=== PATIENT | male | born 1985 ===

== ENCOUNTER 2017-05-13 17:33 | Emergency (ER) | payer BC ==
[~2017-05-13] VITALS: Ht 200.7 cm; Wt 99.8 kg
--- NOTE | 2017-05-13 17:55 | ER Report ---
History and Physical Time Seen By MD: 17:55 Hx. of Stated Complaint: PT REPORTS RLQ PAIN FOR 2 MOS, WORSE THE PAST 2 DAYS HPI/ROS CHIEF COMPLAINT: Abdominal pain HISTORY OF PRESENT ILLNESS: This is a 31-year-old male who presents to the emergency department for right lower quadrant pain. Patient states that over the last couple weeks he's had intermittent right lower quadrant pain and over the last 2 days the pain has been persistent. Patient also states he's had an appendectomy, he has also had some "pus" and foul smelling stuff come out of his ubilicus, he did follow up with his PCP. Patient states he is also concerned about gallbladder disease as his mother, grandmother and his son both had gallbladders removed. However patient's pain is right lower quadrant. Patient denies dysuria, nausea, vomiting, diarrhea. REVIEW OF SYSTEMS: Constitutional: No fever, no chills. Eyes: No discharge. ENT: No sore throat. Cardiovascular: No chest pain, no palpitations. Respiratory: No cough, no shortness of breath. Gastrointestinal: As above. Genitourinary: No hematuria. Musculoskeletal: No back pain. Skin: No rashes. Neurological: No headache. Allergies: Coded Allergies: Penicillins (Verified Allergy, Unknown, 05/13/17) amoxicillin (Verified Allergy, Unknown, 05/13/17) Home Meds No Active Prescriptions or Reported Meds Past Medical/Surgical History Chin has a past medical and surgical history of right foot fracture 2. Right hand fracture. Reviewed Nurses Notes: Yes Constitutional Vital Sign - Last 24 Hours 05/13/17 05/13/17 17:35 19:33 Temp 97.9 Pulse 89 85 Resp 16 16 B/P (MAP) 163/99 128/82 (97) Pulse Ox 96 95 O2 Delivery Room Air Room Air Physical Exam General Appearance: The patient is alert, has no immediate need for airway protection and no signs of toxicity. Eyes: Pupils equal and round no pallor or injection. ENT, Mouth: Mucous membranes are moist. Respiratory: There are no retractions, lungs are clear to auscultation. Cardiovascular: Regular rate and rhythm, no murmurs, clicks or rubs. Gastrointestinal: Abdomen is soft and tenderness to the right lower quadrant, no rebound tenderness, no masses, bowel sounds normal. Neurological: Alert and oriented 4. Moving all extremities. Following all commands. No focal neuro deficits. Skin: Warm and dry, no rashes. Musculoskeletal: Neck is supple non tender. Extremities are nontender, nonswollen and have full range of motion. DIFFERENTIAL DIAGNOSIS: After history and physical exam differential diagnosis was considered for abdominal pain including but not limited to appendicitis, cholecystitis, gastritis and urinary tract infection. Medical Decision Making Data Points Result Diagram: 05/13/17 1740 05/13/17 1740 Laboratory Hematology Test 05/13/17 17:40 Red Blood Count 5.76 M/uL (4.00-5.60) Mean Corpuscular Volume 88.0 fL (80.0-96.0) Mean Corpuscular Hemoglobin 30.3 pg (26.0-33.0) Mean Corpuscular Hemoglobin Concent 34.4 g/dL (32.0-36.0) Red Cell Distribution Width 13.3 % (11.5-14.5) Mean Platelet Volume 8.5 fL (7.2-11.1) Neutrophils (%) (Auto) 57.9 % (39.4-72.5) Lymphocytes (%) (Auto) 32.3 % (17.6-49.6) Monocytes (%) (Auto) 6.3 % (4.1-12.4) Eosinophils (%) (Auto) 2.7 % (0.4-6.7) Basophils (%) (Auto) 0.8 % (0.3-1.4) Nucleated RBC Relative Count (auto) 0.1 /100WBC Neutrophils # (Auto) 4.4 K/uL (2.0-7.4) Lymphocytes # (Auto) 2.4 K/uL (1.3-3.6) Monocytes # (Auto) 0.5 K/uL (0.3-1.0) Eosinophils # (Auto) 0.2 K/uL (0.0-0.5) Basophils # (Auto) 0.1 K/uL (0.0-0.1) Nucleated RBC Absolute Count (auto) 0.01 K/uL Urine Color Straw Urine Clarity Clear Urine pH 6.0 pH (4.8-9.5) Urine Specific Success 1.006 Urine Protein Negative mg/dL (NEGATIVE) Urine Glucose (UA) Negative mg/dL (NEGATIVE) Urine Ketones Negative mg/dL (NEGATIVE) Urine Blood Negative (NEGATIVE) Urine Nitrite Negative (NEGATIVE) Urine Bilirubin Negative (NEGATIVE) Urine Urobilinogen Negative mg/dL (0.2-1.9) Urine Leukocyte Esterase Negative (NEGATIVE) Urine RBC None /HPF (0-2/HPF) Urine WBC <1 /HPF (0-5/HPF) Urine Squamous Epithelial Cells None /LPF (</=FEW) Urine Bacteria Negative /HPF (NONE-FEW) Urine Mucus None /HPF (NONE-FEW) Sodium Level 140 mmol/L (137-145) Potassium Level 3.4 mmol/L (3.5-5.0) Chloride Level 103 mmol/L (98-107) Carbon Dioxide Level 24 mmol/L (22-30) Blood Urea Nitrogen 14 mg/dl (9-21) Creatinine 1.10 mg/dl (0.66-1.25) Glomerular Filtration Rate Calc > 60.0 Random Glucose 89 mg/dl (75-110) Calcium Level 9.7 mg/dl (8.4-10.2) Total Bilirubin 0.6 mg/dl (0.2-1.3) Aspartate Amino Transf (AST/SGOT) 33 U/L (0-35) Alanine Aminotransferase (ALT/SGPT) 36 U/L (0-56) Alkaline Phosphatase 82 U/L (0-126) Total Protein 8.1 gm/dl (6.3-8.2) Albumin 4.5 g/dl (3.5-5.0) Chemistry Test 05/13/17 17:40 White Blood Count 7.5 k/uL (4.5-11.0) Red Blood Count 5.76 M/uL (4.00-5.60) Hemoglobin 17.4 g/dL (14.0-18.0) Hematocrit 50.7 % (42.0-52.0) Mean Corpuscular Volume 88.0 fL (80.0-96.0) Mean Corpuscular Hemoglobin 30.3 pg (26.0-33.0) Mean Corpuscular Hemoglobin Concent 34.4 g/dL (32.0-36.0) Red Cell Distribution Width 13.3 % (11.5-14.5) Platelet Count 229 K/uL (150-450) Mean Platelet Volume 8.5 fL (7.2-11.1) Neutrophils (%) (Auto) 57.9 % (39.4-72.5) Lymphocytes (%) (Auto) 32.3 % (17.6-49.6) Monocytes (%) (Auto) 6.3 % (4.1-12.4) Eosinophils (%) (Auto) 2.7 % (0.4-6.7) Basophils (%) (Auto) 0.8 % (0.3-1.4) Nucleated RBC Relative Count (auto) 0.1 /100WBC Neutrophils # (Auto) 4.4 K/uL (2.0-7.4) Lymphocytes # (Auto) 2.4 K/uL (1.3-3.6) Monocytes # (Auto) 0.5 K/uL (0.3-1.0) Eosinophils # (Auto) 0.2 K/uL (0.0-0.5) Basophils # (Auto) 0.1 K/uL (0.0-0.1) Nucleated RBC Absolute Count (auto) 0.01 K/uL Urine Color Straw Urine Clarity Clear Urine pH 6.0 pH (4.8-9.5) Urine Specific Success 1.006 Urine Protein Negative mg/dL (NEGATIVE) Urine Glucose (UA) Negative mg/dL (NEGATIVE) Urine Ketones Negative mg/dL (NEGATIVE) Urine Blood Negative (NEGATIVE) Urine Nitrite Negative (NEGATIVE) Urine Bilirubin Negative (NEGATIVE) Urine Urobilinogen Negative mg/dL (0.2-1.9) Urine Leukocyte Esterase Negative (NEGATIVE) Urine RBC None /HPF (0-2/HPF) Urine WBC <1 /HPF (0-5/HPF) Urine Squamous Epithelial Cells None /LPF (</=FEW) Urine Bacteria Negative /HPF (NONE-FEW) Urine Mucus None /HPF (NONE-FEW) Glomerular Filtration Rate Calc > 60.0 Calcium Level 9.7 mg/dl (8.4-10.2) Total Bilirubin 0.6 mg/dl (0.2-1.3) Aspartate Amino Transf (AST/SGOT) 33 U/L (0-35) Alanine Aminotransferase (ALT/SGPT) 36 U/L (0-56) Alkaline Phosphatase 82 U/L (0-126) Total Protein 8.1 gm/dl (6.3-8.2) Albumin 4.5 g/dl (3.5-5.0) Urinalysis Test 05/13/17 17:40 Urine Color Straw Urine Clarity Clear Urine pH 6.0 pH (4.8-9.5) Urine Specific Success 1.006 Urine Protein Negative mg/dL (NEGATIVE) Urine Glucose (UA) Negative mg/dL (NEGATIVE) Urine Ketones Negative mg/dL (NEGATIVE) Urine Blood Negative (NEGATIVE) Urine Nitrite Negative (NEGATIVE) Urine Bilirubin Negative (NEGATIVE) Urine Urobilinogen Negative mg/dL (0.2-1.9) Urine Leukocyte Esterase Negative (NEGATIVE) Urine RBC None /HPF (0-2/HPF) Urine WBC <1 /HPF (0-5/HPF) Urine Squamous Epithelial Cells None /LPF (</=FEW) Urine Bacteria Negative /HPF (NONE-FEW) Urine Mucus None /HPF (NONE-FEW) EKG/Imaging Imaging Location: [facility] - [place] Patient: Evan Nichols : 1985 Visit/Account:[id number] Date of Sevice: 05/13/2017 CT abdomen and pelvis with IV contrast Indication: Right lower abdominal pain. Comparison: None available. . Technique: Axial CT images were obtained through the abdomen and pelvis during injection of nonionic iodinated intravenous contrast. Reformatted coronal and sagittal images were also obtained. One of the following dose optimization techniques was utilized in the performance of this exam: Automated exposure control; adjustment of the mA and/ or kV according to the patient's size; or use of an iterative reconstruction technique. Specific details can be referenced in the facility's radiology CT exam operational policy. Contrast: 100 ml of Isovue-370 IV contrast. Findings: Lower lung landis: Posterior left lower lobe does show a partially calcified pleural-based granuloma. There is also a partially calcified granuloma seen in the right middle lobe. Lung bases otherwise clear. Liver: No focal parenchymal abnormality of the liver. Biliary: Gallbladder appears unremarkable as well as the intra and extra hepatic biliary system. Pancreas: Normal appearance. Spleen: Normal appearance. Adrenal glands: Unremarkable. Kidneys / retroperitoneum: No evidence of nephrolithiasis or hydronephrosis. No focal normality. Bowel / peritoneum / mesenteries: The visualized gastrointestinal tract is within normal limits. Status post appendectomy. Stomach is unremarkable. No free air, free fluid, fluid collections or areas of inflammation. Small umbilical hernia containing fat. Lymph node assessment: No pathologic adenopathy identified. Pelvic structures: Appear unremarkable. Vessels: No significant atherosclerotic calcifications seen throughout a nonaneurysmal abdominal aorta and branches. Incidental note of a circumflex left renal vein. Musculoskeletal / Body wall: No acute or aggressive osseous abnormality. Mild degenerative changes in lower lumbar spine. IMPRESSION: 1. No acute intra-abdominal abnormality Report Dictated By: Lambert Abdi at 05/13/2017 6:49 PM Report E-Signed By: Lambert Abdi at 05/13/2017 6:54 PM WSN:[id number] ED Course/Re-evaluation Clinical Indication for ER IV: IV Access ED Course The patient was admitted to room. A history and physical were obtained. Differential diagnoses were considered. IV was started. A CBC, CMP and UA were obtained. Lab studies unremarkable. Negative UA. A CT of the abdomen and pelvis was negative for any acute abnormalities. I did review these results with the patient. After further evaluation of the patient he did tell me that he has right hip pain and has been seeing a chiropractor over the last several months for his hip, he does have a "bad hip on the right side", patient also states he does have some chronic lower back pain. I did tell the patient that this is likely the cause of his right lower abdominal pain, it could be more muscular. I did write a prescription for physical therapy for the patient and he is willing to try this and follow-up with his primary care provider. I did also tell the patient that given his normal labs and the lack of right upper quadrant pain or epigastric pain that I didn't feel it was necessary to proceed with a gallbladder ultrasound. The patient was in agreement with this plan of care, had no other questions or concerns at this time and was discharged home. Decision to Disposition Date: May 13, 2017 Decision to Disposition Time: 19:25 Depart Departure Latest Vital Signs Vital Signs Date Time Temp Pulse Resp B/P (MAP) Pulse Ox O2 Delivery O2 Flow Rate FiO2 05/13/17 19:33 85 16 128/82 (97) 95 Room Air 05/13/17 17:35 97.9 Impression: Primary Impression: Right lower quadrant abdominal pain Condition: Improved Disposition: HOME OR SELF-CARE New Scripts No Active Prescriptions or Reported Meds Patient Instructions: Abdominal Pain (ED) Additional Instructions: Drink plenty of fluids. Get plenty of rest. Take ibuprofen or Tylenol as needed for pain. I do not think the pain is related to your gallbladder, I think this is more muscular from your hip pain and back pain. Follow up with physical therapy for evaluation and treatment. Follow up with your primary care provider as needed. May return to the Ed for worsening symptoms. EVAN [employer] May 13, 2017 17:55
[2017-05-13] MEDS ORDERED: IOPAMIDOL 76% 100 ML INFUS BTL 100 ML ONE (18:18)
[2017-05-13] MEDS ORDERED: NS 0.9% 150 ML BAG 150 ML ONE (18:18)
[2017-05-13 18:20] LABS: PLATELET COUNT, AUTOMATED 229 K/uL (150-450)
--- NOTE | 2017-05-13 18:59 | RADIOLOGY IMAGING REPORT ---
FACILITY: [facility] - [place] PATIENT NAME: Tonja Nichols : 1985 MR: [id number] V: [id number] EXAM DATE: ORDERING PHYSICIAN: TONJA LEAL TECHNOLOGIST: Location: [facility] [place] Patient: Tonja Nichols : 1985 Visit/Account:[id number] Date of Sevice: 05/13/2017 CT abdomen and pelvis with IV contrast Indication: Right lower abdominal pain. Comparison: None available. . Technique: Axial CT images were obtained through the abdomen and pelvis during injection of nonioni c iodinated intravenous contrast. Reformatted coronal and sagittal images were also obtained. One of the following dose optimization techniques was utilized in the performance of this exam: Autom ated exposure control; adjustment of the mA and/or kV according to the patient's size; or use of an i terative reconstruction technique. Specific details can be referenced in the facility's radiology C T exam operational policy. Contrast: 100 ml of Isovue-370 IV contrast. Findings: Lower lung landis: Posterior left lower lobe does show a partially calcified pleural-based granuloma. There is also a partially calcified granuloma seen in the right middle lobe. Lung bases otherwise cl ear. Liver: No focal parenchymal abnormality of the liver. Biliary: Gallbladder appears unremarkable as well as the intra and extra hepatic biliary system. Pancreas: Normal appearance. Spleen: Normal appearance. Adrenal glands: Unremarkable. Kidneys / retroperitoneum: No evidence of nephrolithiasis or hydronephrosis. No focal normality. Bowel / peritoneum / mesenteries: The visualized gastrointestinal tract is within normal limits. Stat us post appendectomy. Stomach is unremarkable. No free air, free fluid, fluid collections or areas of inflammation. Small umbilical hernia containin g fat. Lymph node assessment: No pathologic adenopathy identified. Pelvic structures: Appear unremarkable. Vessels: No significant atherosclerotic calcifications seen throughout a nonaneurysmal abdominal aort a and branches. Incidental note of a circumflex left renal vein. Musculoskeletal / Body wall: No acute or aggressive osseous abnormality. Mild degenerative changes in lower lumbar spine. IMPRESSION: 1. No acute intra-abdominal abnormality Report Dictated By: Lambert Abdi at 05/13/2017 6:49 PM Report E-Signed By: Lambert Abdi at 05/13/2017 6:54 PM WSN:[id number]
[2017-05-13 19:33] VITALS: BP 128/82
== END 2017-05-13 19:35 | disposition home or self-care (01) ==
LOC: ER 17:42
DX: R10.31 Right lower quadrant pain (principal)
CPT/HCPCS: 74177; 81001; 85025; 99284; Q9967; 82040; 82247; 82310; 82374; 82435; 82565; 82947; 84075; 84132; 84155; 84295; 84450; 84460; 84520